=== PATIENT | female | born 1950 | race Caucasian/White ===

== ENCOUNTER → 2018-07-12 13:12 | Outpatient (CLI) | payer OTHER, SELFPAY ==
--- NOTE | 2018-07-12 13:15 | DI.RAD.S_ITS ---
PROCEDURE: XR KNEE LT 3V INDICATIONS: left knee injury. TECHNIQUE: 3 views of the knee were acquired. COMPARISON: None. FINDINGS: Bones: Postsurgical changes presumably related to prior ACL repair. No fractures or dislocations. No suspicious bony lesions. Suspect small intra-articular bodies. Soft tissues: Small joint effusion. No suspicious soft tissue calcifications. IMPRESSION: 1. There are postsurgical changes presumably related to a prior ACL repair. No definitive acute fractures. If clinical symptoms persist or clinical suspicion for internal derangement is high, MRI is suggested for followup evaluation. 2. Small joint effusion. 3. Small intra-articular bodies are suspected. Dictated by: Geena Madison M.D. on 07/12/2018 at 14:55 Approved by: Geena Madison M.D. on 07/12/2018 at 14:58
== END ==
PROVIDERS: Visit Provider Physician Assistant
DX: S83.92XA Sprain of unspecified site of left knee, initial encounter (principal); M25.462 Effusion, left knee
CPT/HCPCS: 73562